=== PATIENT | female | born 1970 | race Caucasian/White ===

== ENCOUNTER 2018-12-03 10:47 | Emergency (ER) | payer SELFPAY ==
[~2018-12-03] VITALS: Ht 162.6 cm; Wt 68.0 kg
--- NOTE | 2018-12-03 11:25 | PHYS DOC ---
Adult General Chief Complaint Chief Complaint: DIARRHEA HPI HPI Patient is a 48 year old female with history of depression, anxiety, PTSD, who presents today complaining of abdominal cramping and diarrhea intermittently for 3 weeks. Patient states symptoms are worse after eating. She states she was also started on Latuda 3 weeks ago but stopped the medications 2 days later because she thought this medications could be the source of her symptoms. She states symptoms are still going on despite stopping the medicine two weeks ago. Denies any fever, denies any nausea vomiting, denies any bloody stools Review of Systems Review of Systems Constitutional: Denies fever or chills [] Eyes: Denies change in visual acuity, redness, or eye pain [] HENT: Denies nasal congestion or sore throat [] Respiratory: Denies cough or shortness of breath [] Cardiovascular: No additional information not addressed in HPI [] GI: Reports abdominal cramping and diarrhea, denies nausea or vomiting or bloody stools : Denies dysuria or hematuria [] Musculoskeletal: Denies back pain or joint pain [] Integument: Denies rash or skin lesions [] Neurologic: Denies headache, focal weakness or sensory changes [] All other systems were reviewed and found to be within normal limits, except as documented in this note. Current Medications Current Medications Current Medications Medications (Trade) Dose Ordered Sig/Rustam Start Time Stop Time Status Last Admin Dose Admin Dicyclomine HCl (Bentyl) 20 mg 1X ONCE 12/03/18 11:30 12/03/18 11:31 DC 12/03/18 13:42 20 MG Famotidine (Pepcid Vial) 20 mg 1X ONCE 12/03/18 11:30 12/03/18 11:31 DC Sodium Chloride 1,000 ml @ 1,000 mls/hr 1X ONCE 12/03/18 11:30 12/03/18 12:29 DC Allergies Allergies Allergies Coded Allergies Type Severity Reaction Last Updated Verified escitalopram Allergy Severe Rash 12/03/18 Yes Physical Exam Physical Exam Constitutional: Well developed, well nourished, no acute distress, non-toxic appearance. [] HENT: Normocephalic, atraumatic, bilateral external ears normal, oropharynx moist, no oral exudates, nose normal. [] Eyes: PERRLA, EOMI, conjunctiva normal, no discharge. [] Neck: Normal range of motion, no tenderness, supple, no stridor. [] Cardiovascular:Heart rate regular rhythm, no murmur [] Lungs & Thorax: Bilateral breath sounds clear to auscultation [] Abdomen: Bowel sounds normal, soft, diffuse tenderness throughout the abdomen, no point tenderness to the right upper quadrant or right lower quadrant, negative Chaney's sign, negative psoas sign, negative obturator sign no masses, no pulsatile masses. [] Skin: Warm, dry, no erythema, no rash. [] Back: No tenderness, no CVA tenderness. [] Extremities: No tenderness, no cyanosis, no clubbing, ROM intact, no edema. [] Neurologic: Alert and oriented X 3, normal motor function, normal sensory function, no focal deficits noted. [] Psychologic: Affect normal, judgement normal, mood normal. [] Current Patient Data Vital Signs Vital Signs Date Time Temp Pulse Resp B/P (MAP) Pulse Ox O2 Delivery O2 Flow Rate FiO2 12/03/18 11:00 98.7 76 18 110/76 (87) 98 Room Air 98.7 Lab Values Laboratory Tests Test 12/03/18 11:13 12/03/18 11:18 12/03/18 13:25 Urine Collection Type Unknown Urine Color [place] Urine Clarity Cloudy Urine pH 5.5 Urine Specific [place] 1.025 Urine Protein 30 mg/dL (NEG-TRACE) Urine Glucose (UA) Negative mg/dL (NEG) Urine Ketones (Stick) Trace mg/dL (NEG) Urine Blood Negative (NEG) Urine Nitrite Negative (NEG) Urine Bilirubin Small (NEG) Urine Urobilinogen Dipstick 1.0 mg/dL (0.2 mg/dL) Urine Leukocyte Esterase Small (NEG) Urine RBC 0 /HPF (0-2) Urine WBC Fobs /HPF (0-4) Urine Squamous Epithelial Cells Many /LPF Urine Bacteria Many /HPF (0-FEW) Urine Mucus Marked /LPF Urine Opiates Screen Neg (NEG) Urine Methadone Screen Neg (NEG) Urine Barbiturates Neg (NEG) Urine Phencyclidine Screen Neg (NEG) Urine Amphetamine/Methamphetamine Neg (NEG) Urine Benzodiazepines Screen Neg (NEG) Urine Cocaine Screen Neg (NEG) Urine Cannabinoids Screen Neg (NEG) Urine Ethyl Alcohol Neg (NEG) POC Urine HCG, Qualitative Hcg negative (Negative) White Blood Count 10.5 x10^3/uL (4.0-11.0) Red Blood Count 4.83 x10^6/uL (3.50-5.40) Hemoglobin 15.6 g/dL (12.0-15.5) H Hematocrit 44.9 % (36.0-47.0) Mean Corpuscular Volume 93 fL (79-100) Mean Corpuscular Hemoglobin 32 pg (25-35) Mean Corpuscular Hemoglobin Concent 35 g/dL (31-37) Red Cell Distribution Width 13.1 % (11.5-14.5) Platelet Count 248 x10^3/uL (140-400) Neutrophils (%) (Auto) 67 % (31-73) Lymphocytes (%) (Auto) 25 % (24-48) Monocytes (%) (Auto) 6 % (0-9) Eosinophils (%) (Auto) 2 % (0-3) Basophils (%) (Auto) 1 % (0-3) Neutrophils # (Auto) 7.0 x10^3uL (1.8-7.7) Lymphocytes # (Auto) 2.6 x10^3/uL (1.0-4.8) Monocytes # (Auto) 0.6 x10^3/uL (0.0-1.1) Eosinophils # (Auto) 0.2 x10^3/uL (0.0-0.7) Basophils # (Auto) 0.1 x10^3/uL (0.0-0.2) Sodium Level 139 mmol/L (136-145) Potassium Level 4.8 mmol/L (3.5-5.1) Chloride Level 102 mmol/L (98-107) Carbon Dioxide Level 24 mmol/L (21-32) Anion Gap 13 (6-14) Blood Urea Nitrogen 12 mg/dL (7-20) Creatinine 0.6 mg/dL (0.6-1.0) Estimated GFR (Cockcroft-Gault) 106.7 BUN/Creatinine Ratio 20 (6-20) Glucose Level 78 mg/dL (70-99) Calcium Level 9.4 mg/dL (8.5-10.1) Total Bilirubin 0.4 mg/dL (0.2-1.0) Aspartate Amino Transferase (AST) 41 U/L (15-37) H Alanine Aminotransferase (ALT) 53 U/L (14-59) Alkaline Phosphatase 93 U/L (46-116) Total Protein 7.3 g/dL (6.4-8.2) Albumin 4.0 g/dL (3.4-5.0) Albumin/Globulin Ratio 1.2 (1.0-1.7) Lipase 89 U/L (73-393) Ethyl Alcohol Level < 3 mg/dL (0-10) Laboratory Tests 12/03/18 13:25 Laboratory Tests 12/03/18 13:25 EKG EKG [] Radiology/Procedures Radiology/Procedures []PROCEDURE: PELVIS W/TV Examination: Ultrasound pelvis HISTORY: History of right adnexal fullness COMPARISON: CT same day exam FINDINGS: The uterus, left ovary are not identified. The right ovary measures 4.1 x 3.3 x 2.8 cm. Complex appearing 3 cm heterogeneous echogenicity identified in the right ovary. IMPRESSION: 1. Complex appearing 3 cm heterogeneous echogenicity identified in the right ovary could be a hemorrhagic cyst or less likely endometrioma, complex ovarian lesion is not excluded. Recommend close interval follow-up examination. Electronically signed by: Bassam Ash MD (12/03/2018 2:16 PM) [facility] DICTATED and SIGNED BY: BASSAM ASH MD DATE: 12/03/18 1416 PROCEDURE: CT ABDOMEN PELVIS WO CONTRAST CT ABDOMEN PELVIS WO CONTRAST Indication: Abdominal pain, diarrhea. Exposure: One or more of the following individualized dose reduction techniques were utilized for this examination: 1. Automated exposure control 2. Adjustment of the mA and/or kV according to patient size 3. Use of iterative reconstruction technique. Comparison: None are available. Technique: No intravenous contrast given. No oral contrast per request. Findings: Evaluation of solid viscera, bowel and vasculature is compromised by the noncontrast technique. Minimal atelectasis in the lung bases. Liver and spleen are not enlarged. Pancreas appears unremarkable. No adrenal mass. Kidneys demonstrate no significant hydronephrosis or obstructive calculus. There are pelvic calcifications bilaterally, thought to represent phleboliths rather than an intraureteric calculi. No calcified gallstone. No significant aortic aneurysm. No significant lymph node enlargement. No significant small bowel distention. No evidence of acute colitis. The appendix appears unremarkable. There is mild density within the appendix which may represent contrast from a prior procedure. No evidence of ascites or pneumoperitoneum. Mild relative fullness of the right adnexa as compared with the left. Urinary bladder is not adequately distended for evaluation. Degenerative changes of the spine no evidence of destructive bone lesion. IMPRESSION: 1. No definite acute findings in the abdomen or pelvis. 2. Asymmetric fullness of the right adnexa. Pelvic ultrasound could further evaluate. Electronically signed by: Shahriar Patel MD (12/03/2018 1:06 PM) [facility] DICTATED and SIGNED BY: SHAHRIAR PATEL MD DATE: 12/03/18 1305 Course & Med Decision Making Course & Med Decision Making Pertinent Labs and Imaging studies reviewed. (See chart for details) This is a 48-year-old female patient presented to the ED today complaining of diarrhea and abdominal cramping for 3 weeks. CBC with normal WBC, CMP-no acute findings. Urine analysis noted for small amount of leukocytes though this urine appears contaminated. Patient does not urgency frequency dysuria. CT of the abdomen and pelvic was noted for possible right ovarian mass. Pelvic ultrasound was done which was noted for a complex appearing 3 cm heterogeneous echogenicity identified in the right ovary could be a hemorrhagic cyst or less likely endometrioma, complex ovarian lesion is not excluded. Recommend close interval follow-up examination. Patient was given an WATCH GUARD GATE and instructed to follow-up in the next 2 weeks. Provided return precautions and discharged in stable condition. Dragon Disclaimer Dragon Disclaimer This electronic medical record was generated, in whole or in part, using a voice recognition dictation system. Departure Departure Impression: Primary Impression: Hemorrhagic cyst of right ovary Additional Impressions: Diarrhea Abdominal cramping Disposition: HOME, SELF-CARE Condition: STABLE Referrals: NO PCP (PCP) NIYA CHÁVEZ MD follow up in 2-4 weeks Patient Instructions: Diarrhea, Ovarian Cyst Additional Instructions: You were evaluated in the emergency room for abdominal cramping and diarrhea. Take the prescribed medication as ordered. You have an ovarian cyst to the right ovary please follow-up with the WATCH GUARD GATE provided or your own WATCH GUARD GATE in the next 2-4 weeks for repeat testing Scripts Dicyclomine Hcl (DICYCLOMINE HCL) 20 Mg Tablet 1 TAB PO TID, #30 TAB 1 Refill Prov: JESSICACherelleADEOLA APRN 12/03/18 Problem Qualifiers Additional Impressions: Diarrhea Diarrhea type: unspecified type Qualified Codes: R19.7 - Diarrhea, unspecified TITIADEOLA CRYSTALIZER Dec 03, 2018 11:25
[2018-12-03 11:26] LABS: BILIRUBIN,URINE SMALL (NEG); CLARITY,URINE CLOUDY; COLOR,URINE ORANGE; NITRITE,URINE NEGATIVE (NEG); PH,URINE 5.5; PROTEIN,URINE 30 mg/dL (NEG-TRACE)
[2018-12-03] MEDS ORDERED: FAMOTIDINE 20 MG/2 ML VIAL IVP ONE (11:30)
[2018-12-03] MEDS ORDERED: IV NORMAL SALINE 1000ML BAG 1,000 ML IV ONE (11:30)
[2018-12-03] MEDS ORDERED: DICYCLOMINE HCL 10 MG CAPSULE PO ONE (11:30)
[2018-12-03 11:32] LABS: BACTERIA,URINE MANY /HPF (0-FEW); SQUAMOUS EPITHELIAL CELL,UR MANY /LPF
[2018-12-03 11:33] LABS: RBC,URINE 0 /HPF (0-2); WBC,URINE FOBS /HPF (0-4)
--- NOTE | 2018-12-03 13:09 | RAD ---
CT ABDOMEN PELVIS WO CONTRAST Indication: Abdominal pain, diarrhea. Exposure: One or more of the following individualized dose reduction techniques were utilized for this examination: 1. Automated exposure control 2. Adjustment of the mA and/or kV according to patient size 3. Use of iterative reconstruction technique. Comparison: None are available. Technique: No intravenous contrast given. No oral contrast per request. Findings: Evaluation of solid viscera, bowel and vasculature is compromised by the noncontrast technique. Minimal atelectasis in the lung bases. Liver and spleen are not enlarged. Pancreas appears unremarkable. No adrenal mass. Kidneys demonstrate no significant hydronephrosis or obstructive calculus. There are pelvic calcifications bilaterally, thought to represent phleboliths rather than an intraureteric calculi. No calcified gallstone. No significant aortic aneurysm. No significant lymph node enlargement. No significant small bowel distention. No evidence of acute colitis. The appendix appears unremarkable. There is mild density within the appendix which may represent contrast from a prior procedure. No evidence of ascites or pneumoperitoneum. Mild relative fullness of the right adnexa as compared with the left. Urinary bladder is not adequately distended for evaluation. Degenerative changes of the spine no evidence of destructive bone lesion. IMPRESSION: 1. No definite acute findings in the abdomen or pelvis. 2. Asymmetric fullness of the right adnexa. Pelvic ultrasound could further evaluate. Electronically signed by: Shahriar Patel MD (12/03/2018 1:06 PM) [facility]
[2018-12-03 13:35] LABS: BASO # 0.1 x10^3/uL (0.0-0.2); BASO % 1 % (0-3); EOS # 0.2 x10^3/uL (0.0-0.7); EOS % 2 % (0-3); HEMATOCRIT 44.9 % (36.0-47.0); HEMOGLOBIN 15.6 g/dL (12.0-15.5); LYMPH # 2.6 x10^3/uL (1.0-4.8); LYMPH % 25 % (24-48); MEAN CORPUSCULAR HEMOGLOBIN 32 pg (25-35); MEAN CORPUSCULAR HGB CONC 35 g/dL (31-37); MEAN CORPUSCULAR VOLUME 93 fL (79-100); MONO # 0.6 x10^3/uL (0.0-1.1); MONO % 6 % (0-9); NEUT % 67 % (31-73); PLATELET COUNT 248 x10^3/uL (140-400); RED BLOOD COUNT 4.83 x10^6/uL (3.50-5.40); RED CELL DISTRIBUTION WIDTH 13.1 % (11.5-14.5); WHITE BLOOD COUNT 10.5 x10^3/uL (4.0-11.0)
[2018-12-03 13:43] LABS: BARBITURATES NEG (NEG); BENZODIAZEPINES NEG (NEG); CANNABINOIDS NEG (NEG); COCAINE NEG (NEG); METHADONE NEG (NEG); OPIATES NEG (NEG); PHENCYCLIDINE NEG (NEG)
[2018-12-03 14:14] LABS: AMPHETAMINE/METHAMPHETAMINE NEG (NEG)
--- NOTE | 2018-12-03 14:18 | RAD ---
Examination: Ultrasound pelvis HISTORY: History of right adnexal fullness COMPARISON: CT same day exam FINDINGS: The uterus, left ovary are not identified. The right ovary measures 4.1 x 3.3 x 2.8 cm. Complex appearing 3 cm heterogeneous echogenicity identified in the right ovary. IMPRESSION: 1. Complex appearing 3 cm heterogeneous echogenicity identified in the right ovary could be a hemorrhagic cyst or less likely endometrioma, complex ovarian lesion is not excluded. Recommend close interval follow-up examination. Electronically signed by: Bassam Ash MD (12/03/2018 2:16 PM) [place] [id number]
[2018-12-03 14:22] LABS: CALCIUM 9.4 mg/dL (8.5-10.1); CREATININE 0.6 mg/dL (0.6-1.0); GFR 106.7; POTASSIUM 4.8 mmol/L (3.5-5.1)
[2018-12-03 14:32] LABS: ALBUMIN/GLOBULIN RATIO 1.2 (1.0-1.7); TOTAL BILIRUBIN 0.4 mg/dL (0.2-1.0); TOTAL PROTEIN 7.3 g/dL (6.4-8.2)
[2018-12-03] MEDS ORDERED: DICY20TA3 PO (14:54)
[2018-12-03 15:00] VITALS: BP 97/58
== END 2018-12-03 15:18 | disposition home or self-care (01) ==
LOC: ER 10:47
DX: N83.201 Unspecified ovarian cyst, right side (principal); R19.7 Diarrhea, unspecified; F32.9 Major depressive disorder, single episode, unspecified; F41.9 Anxiety disorder, unspecified; Z88.8 Allergy status to other drugs, medicaments and biological substances
CPT/HCPCS: 36415; 74176; 76830; 76856; 80053; 80307; 81001; 81025; 83690; 85025; 99285; G0480